=== PATIENT | male | born 1950 | race Two or more races ===

== ENCOUNTER → 2017-04-25 16:30 | Outpatient (CLI) | payer MEDICARE, BC ==
[2017-04-25 17:00] LABS: BASOPHILS 0.3 % (0-2); EOSINOPHILS 5.1 % (0-7); HEMATOCRIT 30.8 % (42.0-54.0); HEMOGLOBIN 10.3 g/dL (13.5-17.5); IMMATURE GRANULOCYTES 0.8 % (0-5); LYMPHOCYTES 13.1 % (15-50); MCH 31.1 pg (26.0-34.0); MCHC 33.4 g/dL (31.0-37.0); MCV 93.1 fL (80.0-100.0); MEAN PLATELET VOLUME 9.2 fL (7.4-10.4); MONOCYTES 1.7 % (2-11); PLATELET COUNT 198 10x3/uL (130-400); RBC 3.31 10x6/uL (4.20-6.10); RDW 16.4 % (11.5-14.5); WBC 6.4 10x3/uL (4.8-10.8)
[2017-04-25 17:10] LABS: ANION GAP 17.1 mmol/L (8-16); CARBON DIOXIDE 19.8 mmol/L (21.0-32.0); CREATININE - SERUM 2.4 mg/dL (0.6-1.3); POTASSIUM - SERUM 4.9 mmol/L (3.5-5.1)
== END | disposition home or self-care (01) ==
LOC: D.OPS 03-05 12:30 → D.LAB 16:30
PROVIDERS: Internal Medicine Hematology & Oncology
DX: N19 Unspecified kidney failure (principal)

== ENCOUNTER → 2017-04-25 18:19 | Outpatient (CLI) | payer MEDICARE, BC | END | disposition home or self-care (01) | LOC: D.LABREF 18:19 | DX: R31.9 Hematuria, unspecified (principal) ==

== ENCOUNTER → 2017-04-30 07:54 | Outpatient (CLI) | payer MEDICARE | END | disposition home or self-care (01) | LOC: D.US 07:54 | DX: N19 Unspecified kidney failure (principal); Z85.51 Personal history of malignant neoplasm of bladder; Z87.448 Personal history of other diseases of urinary system ==